=== PATIENT | male | born 1960 | race Two or more races ===

== ENCOUNTER 2024-07-29 09:20 | Emergency (ER) | payer MEDICAID, SELFPAY ==
[2024-07-29 09:34] VITALS: BP 147/87; PULSE 56; RESP 16; TEMP 36.7; O2SAT 96; BMI 29.6
--- NOTE | 2024-07-29 10:06 | XR_ITS ---
Examination: CT abdomen and pelvis without contrast. Coronal 3-D reconstructions. Sagittal 2-D reconstructions. Date and time of exam:July 29, 2024 1038 hrs. Indications: Constipation difficulty urinating beginning this morning CTDI: vol (mGy): 7.94 DLP: (mGycm): 486 Technique: Axial images of the abdomen have been obtained, 3 mm slice thickness Intravenous contrast material has not been administered. Low dose protocols were performed. One or more of the following dose reduction techniques were used; automated exposure control, adjustment of the mA and/or KV according to patient size, use of iterative reconstruction technique. Findings: No focal liver or splenic lesions Contracted gallbladder No pancreatic or adrenal mass 2 mm lower pole left renal calculus Aorta normal size No bowel obstruction Normal appendix Colonic diverticulosis, no diverticulitis Urinary bladder contracted around a Gilbert catheter Prostate calcifications Transverse prostate dimension 4.5 cm Small inguinal hernias Impression: 2 mm nonobstructing lower pole left renal calculus Normal appendix No bowel obstruction
--- NOTE | 2024-07-29 10:06 | PD.EDRME ---
Rapid Medical Screening Exam RME Arrival date/time: 07/29/24 09:20 63-year-old male presents to the emergency department today for concerns for urinary retention patient reports history of the same Chief Complaint: Urogenital-Male Time Seen by Provider: 07/29/24 09:25 Vital signs: Vital Signs Temperature 98.1 F 07/29/24 09:34 Pulse Rate 56 L 07/29/24 09:34 Respiratory Rate 16 07/29/24 09:34 Blood Pressure 147/87 H 07/29/24 09:34 Pulse Oximetry (%) 96 07/29/24 09:34 Oxygen Delivery Method Room Air 07/29/24 09:34
[2024-07-29] MEDS: KETOROLAC INJ 30 MG/ML VIAL IM (10:31)
[2024-07-29 10:40] LABS: Basophils % (Auto) 0 % (0-2.5); Eosinophils % (Auto) 0 % (0-10); Hematocrit 44.9 % (41.0-53.0); Hemoglobin 15.4 g/dL (13.5-16.0); Immature Granulocytes % (Auto) 0 % (0-0); Immature Granulocytes Auto 0.01 Thou/mm3 (0.00-0.00); Lymphocytes # (Auto) 1.9 Thou/mm3 (1.0-4.8); Lymphocytes % (Auto) 24 % (10-50); Mean Corpuscular HGB Conc 34.3 g/dl (31.0-37.0); Mean Corpuscular Hemoglobin 32.7 pg (25.0-35.0); Mean Corpuscular Volume 95 fL (80-100); Monocytes # (Auto) 0.5 Thou/mm3 (0.0-0.8); Monocytes % (Auto) 6 % (0-12); Neutrophils # (Auto) 5.7 Thou/mm3 (1.8-7.7); Neutrophils % (Auto) 70 % (37-80); Nucleated Red Blood Cell % 0 /100 WBC (0); Platelet Count 216 Thou/mm3 (140-440); RDW Standard Deviation 44.3 fL (35.1-43.9); Red Blood Count 4.71 Miln/mm3 (4.50-5.90); White Blood Count 8.1 Thou/mm3 (3.8-10.6)
[2024-07-29 11:10] LABS: Collection Type, Urine Clean Catch; WBC,Urine 0 /hpf (0-5)
[2024-07-29 11:15] LABS: Alanine Aminotransferase 26 U/L (10-49); Albumin, Serum 4.4 gm/dL (3.4-4.8); Albumin/Globulin Ratio 1.8 (1.2-2.2); Alkaline Phosphatase 87 U/L (46-116); Anion Gap 7 (7-16); Aspartate Amino Transferase 28 U/L (0-34); BUN/Creatinine Ratio 16 Ratio (12-20); Bilirubin,Total 0.8 mg/dL (0.3-1.2); Blood Urea Nitrogen 13 mg/dL (9-23); Calcium 9.3 mg/dL (8.3-10.6); Calcium (Corrected) 9.3 mg/dL (8.5-10.1); Carbon Dioxide 27.2 mMol/L (20.0-31.0); Chloride 105 mMol/L (98-107); Creatinine (Component) 0.8 mg/dL (0.6-1.3); Estimated Creatinine Clearance 92.5 mL/min (>60); Globulin 2.5 gm/dL (2.3-3.5); Glucose 108 mg/dL (74-106); Lipase 33 U/L (12-53); Osmolality,Calculated 278 (275-295); Potassium 4.2 mMol/L (3.4-5.1); Sodium 139 mMol/L (136-145); Total Protein 6.9 gm/dL (5.7-8.2); eGFR > 60 See Note
[2024-07-29 11:25] LABS: RBC,Urine 124 /hpf (0-3); Squamous Epithelial Cell,Urine < 1 /hpf (0-5)
[2024-07-29 11:41] LABS: Bilirubin,Urine Negative (Negative); Blood,Urine 3+ (Negative); Clarity,Urine Clear (Clear/Hazy); Color,Urine Lt Yellow (Lt Yel-Yel); Culture Indicated,Urine Not Indicated; Glucose, Urine Negative (Negative); Ketones,Urine Negative (Negative); Leukocyte Esterase,Urine Negative (Negative); Nitrite,Urine Negative (Negative); Protein,Urine Negative (Neg - Trace); Specific Gravity,Urine 1.025 (1.001-1.035); Urobilinogen,Urine 0.2 mg/dL (0.0-1.0)
--- NOTE | 2024-07-29 12:23 | PD.EDMALE ---
ED Male Genitalurinary RME/HPI General Chief complaint: Urogenital-Male Stated complaint: URINARY RETENTION, LOWER ABD PAIN Time Seen by Provider: 07/29/24 09:25 Arrival date/time: 07/29/24 09:20 63-year-old male presents to the emergency department today for concerns for urinary retention patient reports history of the same Limitations: no limitations RME / HPI RME / HPI Narrative: 07/29/24 09:20 63-year-old male presents to the emergency department today for concerns for urinary retention patient reports history of the same Related Data Previous Rx's ?Medication ?Instructions ?Recorded magnesium hydroxide 2,400 mg/10 mL 30 ml PO QDAY PRN constipation 08/27/17 oral suspension (Milk Of Magnesia #400 mL Concentrated) hydrocodone 5 mg-acetaminophen 325 1 tab PO BID PRN pain #8 tabs 07/29/24 mg tablet ibuprofen 800 mg tablet 800 mg PO TID PRN pain #30 tabs 07/29/24 tamsulosin 0.4 mg capsule (Flomax) 0.4 mg PO QDAY 14 days #14 caps 07/29/24 Allergies Allergy/AdvReac Type Severity Reaction Status Date / Time No Known Allergies Allergy Verified 08/27/17 04:55 Review of Systems Review of Systems Systems Reviewed: All systems reviewed, normal except as documented Constitutional Constitutional: Reports system reviewed and no additional complaints, except as documented, Denies fever(s) and Denies headache(s) Eyes Eyes: Reports system reviewed and no additional complaints, except as documented and Denies blurry vision ENT Ears, Nose, Mouth, and Throat: Reports system reviewed and no additional complaints, except as documented, Denies headache(s), Denies nasal congestion and Denies nasal discharge Cardiovascular Cardiovascular: Reports system reviewed and no additional complaints, except as documented, Denies chest pain and Denies dyspnea Respiratory Respiratory: Reports system reviewed and no additional complaints, except as documented, Denies chest congestion, Denies cough and Denies dyspnea Gastrointestinal Gastrointestinal: Reports system reviewed and no additional complaints, except as documented and Denies abdominal pain Genitourinary Genitourinary: Reports system reviewed and no additional complaints, except as documented and Reports difficulty urinating Integumentary/Breasts Skin/Breast: Reports system reviewed and no additional complaints, except as documented and Denies rash Neurologic Neurologic: Reports system reviewed and no additional complaints, except as documented, Reports as per HPI and Denies headache(s) Past Medical History Past Medical History CARDIAC: Negative Congestive Heart Failure RESPIRATORY: Negative Chronic Obstructive Pulmonary Disease (COPD) GENITOURINARY: Negative Renal Disease ENDOCRINE: Negative Diabetes Mellitus Type 1 or Diabetes Mellitus Type 2 Social History SMOKING STATUS: Never smoker ED Exam General Limitations: Present no limitations General appearance: Present alert and in no apparent distress Head Head exam: Present atraumatic, normocephalic and normal inspection Eye Eye exam: Present normal appearance, PERRL and EOMI; Absent conjunctival injection ENT ENT exam: Present normal exam, normal oropharynx and mucous membranes moist Neck Neck exam: Present normal inspection, full ROM and trachea midline Chest Chest inspection: Present normal inspection and symmetric chest wall rise Respiratory Respiratory exam: Present normal lung sounds bilaterally; Absent respiratory distress, wheezes, stridor, accessory muscle use or prolonged expiratory phase Cardiovascular Cardiovascular exam: Present regular rate, normal rhythm and normal heart sounds Abdominal Exam Abdominal exam: Present soft and normal bowel sounds; Absent distention, tenderness, guarding, rebound or rigidity Extremities Exam Extremities exam: Present normal inspection and full ROM Back Exam Back exam: Present normal inspection and full ROM Neurological Exam Neurological exam: Present alert, oriented X3 and CN II-XII intact Psychiatric Psychiatric exam: Present normal affect and normal mood Skin Skin exam: Present warm, dry, intact and normal color Course Quality Measures none Orders Category Date Time Status Gilbert [Urinary Catheter] NOW Care 07/29/24 10:[address] abdomen pelvis wo con Stat Exams 07/29/24 10:06 Completed CBC Stat Lab 07/29/24 10:30 Completed Comprehensive Metabolic Panel Stat Lab 07/29/24 10:30 Completed Lipase Stat Lab 07/29/24 10:30 Completed UA, C/S IF [Urinalysis, C/S if Indicated] Stat Lab 07/29/24 11:04 Results Ketorolac Inj [Toradol Inj] Med 07/29/24 10:28 Discontinued 30 mg IM X1 ONE Vital Signs Vital signs: Vital Signs Temperature 98.1 F 07/29/24 09:34 Pulse Rate 56 L 07/29/24 09:34 Respiratory Rate 16 07/29/24 09:34 Blood Pressure 147/87 H 07/29/24 09:34 Pulse Oximetry (%) 96 07/29/24 09:34 Oxygen Delivery Method Room Air 07/29/24 09:34 O2 saturation 96% room air within normal limits Urogenital - Male MDM Narrative MDM Narrative:: 63-year-old male presents to the emergency department today for concerns for urinary retention patient reports history of the same On exam patient does not appear ill or toxic in no acute distress patient does report he is able to urinate but reports pain with urination and difficulty urinating Lab work as well as CT scan obtained no acute emergent findings noted Patient had a Gilbert catheter placed reports symptoms improved after Gilbert catheter placement and pain medication Patient discharged home in no distress to follow-up with urologist in the next 24 to 48 hours and for any worsening symptoms to return to the ER immediately Patient data External records reviewed:: [facility] previous records Clinical information provided by:: patient Social determinants that could affect healthcare access:: none Patient has the following chronic illnesses:: Urinary retention How is presenting disease/condition affected by chronic disease/condition?: caused by Evaluation data The following diagnostics were reviewed and interpreted by me:: lab results and radiology exam(s) Lab and/or radiology exams considered but not ordered:: Labs radiology obtained Interpretation Summary: By me Medications / Prescriptions Medications or Prescriptions considered but not ordered:: Given Medication administrations:: Medication Administration History Discontinued Medications Ketorolac Tromethamine (Ketorolac Inj 30 Mg/Ml Vial) 30 mg IM X1 ONE Stop: 07/29/24 10:29 Last Admin: 07/29/24 10:31 Dose: 30 mg Documented By: TUCKER Given Consultations Consultation(s) initiated? (list below): No Diagnosis Urogenital Male Differential Diagnosis: urinary tract infection and acute retention of urine Most likely diagnosis given after review of the tests above:: Urinary retention Admission Indicated Admission indicated?: not indicated Admission Request Was there a request for admission?: No Disposition Plan Disposition Plan: Discharge Discharge Attestation Discharge Attestation: The patient and all family members were given an opportunity to ask questions and understood the discharge instructions. Discharge instructions specifically effects, indications for sooner follow up or return to the emergency department, and the expected course of current diagnosis. Patient condition: Stable Discharge Plan Plan Patient Disposition: HOME (Self Care) Disposition Comment: Stable Prescriptions/Referrals Prescriptions/Med Rec: New ibuprofen 800 mg tablet 800 mg PO TID PRN (Reason: pain) Qty: 30 0RF hydrocodone-acetaminophen 5-325 mg tablet 1 tab PO BID MDD 10 PRN (Reason: pain) Qty: 8 0RF tamsulosin [Flomax] 0.4 mg capsule 0.4 mg PO QDAY 14 Days Qty: 14 0RF No Action magnesium hydroxide [Milk Of Magnesia Concentrated] 2,400 mg/10 mL suspension 30 ml PO QDAY PRN (Reason: constipation) Qty: 400 0RF Rx Instructions: administer with a full glass (8 ounces/240 mL) liquid Referrals: No Primary/Family,Physician [Primary Care Provider] - In 1 week Problem List Clinical Impression: Acute on chronic urinary retention Patient/Caregiver Discharge Instructions Education Materials: ED Urinary Retention, Male Additional Instructions: Please follow-up with urology as discussed for worsening symptoms or concerns return to the ER immediately for further evaluation Print Language: Sri Lankan Stand Alone Forms: Addis Award Info., Work/School Release, Patient Portal Info Letter PA/DIRECTOR PHARMACOLOGY Supervising Physician PA/DIRECTOR PHARMACOLOGY Supervising Physician: Dr farnsworth
== END 2024-07-29 12:39 | disposition home or self-care (01) ==
PROVIDERS: Nurse Practitioner Primary Care; Emergency Provider Emergency Medicine
DX: R33.9 Retention of urine, unspecified (principal)
CPT/HCPCS: 51702; 36415; 74176; 80053; 81001; 83690; 85025; 96372; 99284; J1885

== ENCOUNTER 2024-08-24 09:57 | Emergency (ER) | payer MEDICAID, SELFPAY ==
[2024-08-24 10:23] VITALS: BP 122/71; PULSE 68; RESP 16; TEMP 36.6; O2SAT 95; BMI 26.3
--- NOTE | 2024-08-24 10:26 | PD.EDADULT ---
ED General RME/HPI General Chief complaint: General Adult/Misc Complain Stated complaint: NEEDS NEW CATHETER BAG, CURRENT BAG LEAKING Time Seen by Provider: 08/24/24 10:08 Source: patient Arrival date/time: 08/24/24 09:57 64-year-old male with no known medical history presents to the emergency room with a chief complaint of needing a new catheter leg bag as his current bag is leaking. Mode of arrival: ambulatory Limitations: no limitations Related Data Previous Rx's ?Medication ?Instructions ?Recorded magnesium hydroxide 2,400 mg/10 mL 30 ml PO QDAY PRN constipation 08/27/17 oral suspension (Milk Of Magnesia #400 mL Concentrated) hydrocodone 5 mg-acetaminophen 325 1 tab PO BID PRN pain #8 tabs 07/29/24 mg tablet ibuprofen 800 mg tablet 800 mg PO TID PRN pain #30 tabs 07/29/24 Allergies Allergy/AdvReac Type Severity Reaction Status Date / Time No Known Allergies Allergy Verified 08/24/24 10:00 Review of Systems Review of Systems Systems Reviewed: All systems reviewed, normal except as documented Constitutional Constitutional: Reports system reviewed and no additional complaints, except as documented, Denies fatigue, Denies fever(s), Denies headache(s) and Denies weakness Eyes Eyes: Reports system reviewed and no additional complaints, except as documented, Denies blurry vision and Denies change in vision ENT Ears, Nose, Mouth, and Throat: Reports system reviewed and no additional complaints, except as documented, Denies otalgia, Denies headache(s), Denies nasal congestion, Denies throat swelling and Denies vertigo Cardiovascular Cardiovascular: Reports system reviewed and no additional complaints, except as documented, Denies chest pain, Denies dyspnea and Denies dyspnea on exertion Respiratory Respiratory: Reports system reviewed and no additional complaints, except as documented, Denies chest congestion, Denies cough, Denies dyspnea, Denies dyspnea on exertion and Denies wheezing Gastrointestinal Gastrointestinal: Reports system reviewed and no additional complaints, except as documented, Denies abdominal pain, Denies cramping, Denies nausea and Denies vomiting Genitourinary Genitourinary: Reports system reviewed and no additional complaints, except as documented, Denies dysuria and Denies hematuria Musculoskeletal Musculoskeletal: Reports system reviewed and no additional complaints, except as documented and Denies back pain Integumentary/Breasts Skin/Breast: Reports system reviewed and no additional complaints, except as documented and Denies wounds Neurologic Neurologic: Reports system reviewed and no additional complaints, except as documented, Denies confusion, Denies headache(s), Denies lack of coordination, Denies vertigo and Denies weakness Psychiatric Psychiatric: Reports system reviewed and no additional complaints, except as documented, Denies anxiety, Denies confusion, Denies depression, Denies paranoia, Denies suicidal ideation and Denies tactile hallucinations Endocrine Endocrine: Reports system reviewed and no additional complaints, except as documented and Denies fatigue Hematologic/Lymphatic Hematologic/Lymphatic: Reports system reviewed and no additional complaints, except as documented and Denies lymphadenopathy Allergic/Immunologic Allergic/Immunologic: Reports system reviewed and no additional complaints, except as documented, Denies throat swelling, Denies urticaria and Denies wheezing Past Medical History Past Medical History CARDIAC: Negative Congestive Heart Failure RESPIRATORY: Negative Chronic Obstructive Pulmonary Disease (COPD) GENITOURINARY: Negative Renal Disease ENDOCRINE: Negative Diabetes Mellitus Type 1 or Diabetes Mellitus Type 2 Social History SMOKING STATUS: Former smoker ED Exam General Limitations: Present no limitations General appearance: Present alert and in no apparent distress Head Head exam: Present atraumatic Eye Eye exam: Present normal appearance, PERRL and EOMI ENT ENT exam: Present normal exam, normal oropharynx and mucous membranes moist Neck Neck exam: Present normal inspection, full ROM and trachea midline Chest Chest inspection: Present normal inspection and symmetric chest wall rise Respiratory Respiratory exam: Present normal lung sounds bilaterally Cardiovascular Cardiovascular exam: Present regular rate, normal rhythm and normal heart sounds Abdominal Exam Abdominal exam: Present soft and normal bowel sounds Extremities Exam Extremities exam: Present normal inspection and full ROM Back Exam Back exam: Present normal inspection and full ROM Neurological Exam Neurological exam: Present alert, oriented X3 and CN II-XII intact Psychiatric Psychiatric exam: Present normal affect and normal mood Skin Skin exam: Present warm, dry, intact and normal color Course Quality Measures none Orders Category Date Time Status Gilbert to Leg Bag Routine Care 08/24/24 10:25 Ordered Vital Signs Vital signs: Vital Signs Temperature 97.9 F 08/24/24 10:23 Pulse Rate 68 08/24/24 10:23 Respiratory Rate 16 08/24/24 10:23 Blood Pressure 122/71 08/24/24 10:23 Pulse Oximetry (%) 95 08/24/24 10:23 Oxygen Delivery Method Room Air 08/24/24 10:23 O2 saturation within normal limits MDM Patient data External records reviewed:: [facility] previous records Clinical information provided by:: patient Social determinants that could affect healthcare access:: none Patient has the following chronic illnesses:: No chronic illness How is presenting disease/condition affected by chronic disease/condition?: no chronic disease Evaluation data The following diagnostics were reviewed and interpreted by me:: lab results and radiology exam(s) Lab and/or radiology exams considered but not ordered:: Labs and radiology exams considered and ordered Interpretation Summary: N/A Medications Medications considered but not ordered:: N/A Medication administrations:: N/A Consultations Consultation(s) initiated? (list below): No Diagnosis Differential Diagnosis ED Complaint MDM: Catheter complications/urinary tract infection/acute urinary retention Most likely diagnosis given after review of the tests above:: Catheter complications Admission Indicated Admission indicated?: not indicated Explain why admission is indicated or not indicated:: N/A Admission Request Was there a request for admission?: No Disposition Plan Disposition Plan: Discharge Discharge Attestation Discharge Attestation: The patient and all family members were given an opportunity to ask questions and understood the discharge instructions. Discharge instructions specifically effects, indications for sooner follow up or return to the emergency department, and the expected course of current diagnosis. Patient condition: Stable Medical Decision Making [facility] Narrative MDM Narrative: 64-year-old male with no known medical history presents to the emergency room with a chief complaint of needing a new catheter leg bag as his current bag is leaking. Patient is hemodynamically stable and in no apparent distress. Patient states he has his appointment to see his urologist on 07 September. Patient states he is unsure why he has the acute urinary retention but states there is no problem with his urination there is no dysuria or any other urinary problems. Patient denies there being leaking from the catheter site and states the leg bag is only thing that is leaking. Patient has an appointment to see his urologist. His leg bag was replaced and an extra leg bag was given Patient was discharged and educated to follow-up with primary care provider in the next 24 to 48 hours and return to the emergency room for any evidence of worsening signs or symptoms Differential Diagnosis Differential Diagnosis: Catheter complications/urinary tract infection/acute urinary retention Discharge Plan Plan Patient Disposition: HOME (Self Care) Disposition Comment: Stable Prescriptions/Referrals Prescriptions/Med Rec: No Action magnesium hydroxide [Milk Of Magnesia Concentrated] 2,400 mg/10 mL suspension 30 ml PO QDAY PRN (Reason: constipation) Qty: 400 0RF Rx Instructions: administer with a full glass (8 ounces/240 mL) liquid ibuprofen 800 mg tablet 800 mg PO TID PRN (Reason: pain) Qty: 30 0RF hydrocodone-acetaminophen 5-325 mg tablet 1 tab PO BID MDD 10 PRN (Reason: pain) Qty: 8 0RF Problem List Clinical Impression: Complication of Gilbert catheter Patient/Caregiver Discharge Instructions Additional Instructions: Por favor, acuda a blake robert de seguimiento con nieves m?dico de cabecera en las pr?ximas 24 a 48 horas. Por favor, acuda a nieves robert con el ur?logo el 7 de [place] 2024. Si observa cualquier signo de empeoramiento de los signos o s?ntomas, acuda a urgencias de inmediato. Print Language: Ukrainian Stand Alone Forms: Addis Award Info., Patient Portal Info Letter PA/CABLE WORKER HELPER Supervising Physician PA/CABLE WORKER HELPER Supervising Physician: Dr. Hemphill
== END 2024-08-24 10:32 | disposition home or self-care (01) ==
LOC: SERX 10:45
PROVIDERS: Emergency Provider Emergency Medicine
DX: T83.031A Leakage of indwelling urethral catheter, initial encounter (principal); Y84.6 Urinary catheterization as the cause of abnormal reaction of the patient, or of later complication, without mention of misadventure at the time of the procedure
CPT/HCPCS: 99282